=== PATIENT | female | born 1935 | race African-American/Black ===

== ENCOUNTER 2017-11-18 16:49 | Inpatient (IN) | payer MEDICARE ==
--- NOTE | 2017-11-18 18:30 | RAD ---
RIGHT HIP TWO VIEWS: 11/18/17 HISTORY: Trauma. Fall. Pain. FINDINGS: There is a nondisplaced subcapital right hip fracture. IMPRESSION: Right hip fracture. POS: [facility]
--- NOTE | 2017-11-18 18:48 | CT ---
CT CERVICAL SPINE WITHOUT CONTRAST: 11/18/17 HISTORY: Fall. Pain. Trauma. COMPARISON: None. TECHNIQUE: CT cervical spine is performed without contrast. reformatted images are submitted for interpretation. FINDINGS: No craniocervical dissociation. Lateral masses of C1 and C2 as well as the facets have appropriate ar ticulation. Odontoid process is intact. 3 mm of anterolisthesis of C4 upon C5, 2.5 mm retrolisthesis of C5 upon C6, 3 mm anterolisthesis of C 7 upon T1 and 2.9 mm anterolisthesis of T1 upon T2. Spondylolisthesis is felt to be due to degenerati ve change given facet hypertrophy. There is no significant prevertebral soft tissue swelling. Varying degrees of central canal stenosis and foraminal narrowing on the basis of degenerative change. Soft tissue neck structures, upper mediastinum, and lung apices are unremarkable. Cervical spine vertebral body height is maintained. There is no fracture. IMPRESSION: No fracture. POS: [facility]
--- NOTE | 2017-11-18 18:54 | CT ---
NONCONTRAST HEAD CT: 11/18/17 HISTORY: Pain. Trauma. Fall. COMPARISON: None. TECHNIQUE: Noncontrast head CT is performed from skull base to skull vertex. FINDINGS: No parenchymal hemorrhage. No extra-axial hematoma. No midline shift. Basilar cisterns are patent. Ag e appropriate atrophy. Cortical patino-white matter differentiation is preserved. No evidence of hydrocephalus. Adequate aeration of the sinuses and mastoid air cells. Calvarium is intact. IMPRESSION: No intracranial posttraumatic sequela. POS: [facility]
--- NOTE | 2017-11-18 18:54 | RAD ---
RIGHT ELBOW FOUR VIEWS: 11/18/17 HISTORY: Trauma. Fall. Pain. FINDINGS: Obvious fracture is not appreciated. No definite malalignment or large joint effusion. IMPRESSION: No definite fracture. Clinical correlation is essential. If there is pain or point tenderness, immobi lization and followup imaging in 7 to 10 days. POS: [facility]
[2017-11-18 19:06] LABS: #Basophils 0.2 thou/uL (0.0-0.2); #Eosinphils 0.1 thou/uL (0.0-0.7); #Lymphocytes 0.4 thou/uL (1.20-3.40); #Monocytes 0.5 thou/uL (0.11-0.59); #Neutrophils 8.1 thou/uL (1.40-6.50); %Basophils 1.9 % (0.0-1.0); %Eosinophils 0.8 % (0.0-10.0); %Lymphocytes 4.1 % (21.0-51.0); %Monocytes 5.6 % (0.0-10.0); %Neutrophils 87.6 % (42.0-75.0); Hemoglobin 13.1 g/dL (12.0-16.0); Mean Corpuscular HGB CONC 32.3 g/dL (32.0-36.0); Mean Corpuscular Hemoglobin 26.2 pg (27.0-31.0); Mean Corpuscular Volume 81.3 fL (78.0-98.0); Mean Platelet Volume 8.9 fL (7.4-10.4); Platelet Count 124 thou/uL (130-400); RBC Distribution Width 14.4 % (11.5-14.5); Red Blood Cell (RBC) Count 5.01 mill/uL (4.20-5.40); White Blood Cell (WBC) Count 9.2 thou/uL (4.8-10.8)
[2017-11-18 19:13] LABS: INR-International Normal Ratio 1.2; PTT 28.3 SEC (22.9-36.1)
[2017-11-18] MEDS ORDERED: Ondansetron ODT 4 MG TAB ONE (19:16)
[2017-11-18 19:26] LABS: ALT (SGPT) 12 U/L (8-55); AST (SGOT) 30 U/L (5-34); Albumin 4.2 g/dL (3.4-4.8); Alkaline Phosphatase 116 U/L (40-150); Anion Gap 16 mmol/L (10-20); BUN (Urea Nitrogen) 45 mg/dL (9.8-20.1); Bilirubin, Total 0.7 mg/dL (0.2-1.2); Calc. Creatinine Clearance 0 mL/min (70-130); Calcium 9.6 mg/dL (7.8-10.44); Carbon Dioxide 28 mmol/L (23-31); Chloride 99 mmol/L (98-107); Estimated GFR-MDRD 41; Globulin 4.2 g/dL (2.4-3.5); Glucose 111 mg/dL (83-110); Protein, Total 8.4 g/dL (6.0-8.3); Sodium 138 mmol/L (136-145)
[2017-11-18 19:31] LABS: Troponin I 0.019 ng/mL (< 0.028)
[2017-11-18] MEDS ORDERED: Ondansetron ODT 4 MG TAB PO PRN (20:50)
[2017-11-18] MEDS ORDERED: Ondansetron HCl/PF 4 MG/2 ML Vial IVP PRN (20:50)
[2017-11-18] MEDS ORDERED: hydrALAZINE 20 MG/ML VIAL SLOW IVP PRN (20:50)
[2017-11-18] MEDS ORDERED: Dextrose 50% Abboject 50 ML SYRINGE SLOW IVP PRN ×2 (20:50)
[2017-11-18] MEDS ORDERED: Dextrose 5% in Water 1,000 ML IV PRN (20:50)
[2017-11-18 21:01] VITALS: BMI 25.1
--- NOTE | 2017-11-18 22:15 | HP ---
DATE OF ADMISSION: 11/18/2017 REQUESTING PHYSICIAN: Dr. Dimas. ATTENDING SURGEON: Dr. Leyva. CONSULTATIONS: Orthopedic, Dr. Ty. HISTORY OF PRESENT ILLNESS: Patient is an 82-year-old -[place] woman who was reportedly walk ing with her sisters when she is turned quickly, lost her balance, and fell. The patient and her sis ters reports no loss of consciousness. Patient did not strike her head. Denies pain and no syncopal type symptoms prior to falling. She was brought to the emergency department, evaluated, examined, a nd noted to have a right femoral neck fracture, at which time we were asked to evaluate the patient f or admission and obtain Orthopedic consultation. ALLERGIES: None. CURRENT MEDICATIONS: Patient takes aspirin, Plavix, torsemide. PAST MEDICAL HISTORY: Coronary artery disease, hypertension, also congestive heart failure. PAST SURGICAL HISTORY: Cardiac stent placement and pacemaker placement. SOCIAL HISTORY: Patient denies drug, tobacco, or alcohol use. She currently lives in a [facility]. FAMILY MEDICAL HISTORY: Diabetes. REVIEW OF SYSTEMS: Ten-point review of systems negative, unless otherwise stated. PHYSICAL EXAMINATION: VITAL SIGNS: Blood pressure 156/93, heart rate 82, respirations 16, oxygen saturation is 94% on room air, temperature is 98.0. GENERAL: Patient is resting comfortably in bed. She is awake, alert, and oriented x3. [place] coma scale is 15. HEENT: Head is normocephalic, atraumatic. Eyes: Extraocular motion intact. PERRLA bilaterally. E ars are atraumatic without discharge. Nose are atraumatic without discharge. Oropharynx is clear. NECK: Nontender. Trachea is midline. No JVD. CHEST: Clear to auscultation with good inspiratory and expiratory effort. HEART: Regular rate and rhythm. ABDOMEN: Soft, flat, nontender with active bowel sounds. Pelvis is stable with tenderness to palpat ion to the right hip consistent with her fracture. EXTREMITIES: Neurovascularly intact x4. Capillary refill is less than 3 seconds. Pulses are 2+. BACK: Nontender and atraumatic. LABORATORY FINDINGS: White blood cell count 9.2, hemoglobin 13.1, hematocrit 40.7, platelets 124. S odium 138, potassium 5.0, chloride 99, CO2 of 28, BUN 45, creatinine 1.46, glucose 111. LFTs are unr emarkable. PT 15, INR 1.2, PTT 28. RADIOGRAPHIC FINDINGS: CT of the brain without contrast shows no intracranial post-traumatic sequela . CT of the C-spine without contrast shows no fracture or subluxation. Radiographs of the right elb ow show no definitive fracture. Radiographs of the right hip show a nondisplaced subcapital right hi p fracture. ASSESSMENT: 1. Status post ground level fall. 2. Right subcapital hip fracture. 3. Right elbow contusion. 4. History of coronary artery disease. 5. History of congestive heart failure. 6. Acute kidney injury. PLAN: Plan will be to admit the patient to the surgical floor due to her Plavix use. The patient wi ll not be able to have surgery until Tuesday, this has been discussed with Dr. Ty. The patient w ill have pain control, pulmonary toilet, gastritis, mechanical VTE prophylaxis. The evaluation, exam ination will be discussed with Dr. Leyva after this dictation.
[2017-11-18] MEDS ORDERED: Sodium Chloride 0.9% 1,000 ML IV SCH (23:55)
[2017-11-19] MEDS: Acetaminophen 1,000 MG in Premix Bag 1 BAG IVPB SCH ×2 (00:36→06:54)
[2017-11-19 06:09] LABS: Anion Gap 12 mmol/L (10-20); BUN (Urea Nitrogen) 43 mg/dL (9.8-20.1); Calc. Creatinine Clearance 34 mL/min (70-130); Calcium 8.8 mg/dL (7.8-10.44); Carbon Dioxide 28 mmol/L (23-31); Chloride 101 mmol/L (98-107); Estimated GFR-MDRD 42; Glucose 130 mg/dL (83-110); Potassium 4.4 mmol/L (3.5-5.1); Sodium 137 mmol/L (136-145)
[2017-11-19 06:11] LABS: #Eosinphils 0.1 thou/uL (0.0-0.7); #Lymphocytes 0.5 thou/uL (1.20-3.40); #Monocytes 0.7 thou/uL (0.11-0.59); #Neutrophils 6.4 thou/uL (1.40-6.50); %Basophils 0.1 % (0.0-1.0); %Eosinophils 1.9 % (0.0-10.0); %Lymphocytes 6.3 % (21.0-51.0); %Monocytes 9.3 % (0.0-10.0); %Neutrophils 82.5 % (42.0-75.0); Hemoglobin 11.7 g/dL (12.0-16.0); Mean Corpuscular HGB CONC 31.6 g/dL (32.0-36.0); Mean Corpuscular Hemoglobin 25.5 pg (27.0-31.0); Mean Corpuscular Volume 80.6 fL (78.0-98.0); Mean Platelet Volume 8.8 fL (7.4-10.4); Platelet Count 113 thou/uL (130-400); RBC Distribution Width 14.5 % (11.5-14.5); Red Blood Cell (RBC) Count 4.59 mill/uL (4.20-5.40); White Blood Cell (WBC) Count 7.7 thou/uL (4.8-10.8)
[2017-11-19 08:27] LABS: Magnesium 2.3 mg/dL (1.6-2.6); Phosphorus 3.9 mg/dL (2.3-4.7)
[2017-11-19] MEDS: Famotidine 20 MG TAB PO SCH (09:08)
--- NOTE | 2017-11-19 09:42 | PRG ---
DATE OF SERVICE: 11/19/2017 The patient is seen and examined. Please see [facility] for full details. The patient pre sents with right hip fracture. Plan is for ORIF of hip per Dr. Ty, Trauma team will follow.
[2017-11-19] MEDS ORDERED: Acetaminophen 500 MG TAB PO SCH (12:00)
--- NOTE | 2017-11-19 17:34 | CON ---
DATE OF CONSULTATION: 11/19/2017 DATE OF ADMISSION: 11/18/2017 HISTORY OF PRESENT ILLNESS: Ms. Soria is an 82-year-old female, who was walking with her sisters, luann boone quickly, lost her balance and fell, injuring her right hip. She was unable to ambulate afterward s, had immediate pain in the right hip and groin region. No neurologic complaints in the right lower extremity. The patient was brought to the emergency room and revealed a displaced femoral neck frac ture of the right hip. ALLERGIES: None. CURRENT MEDICATIONS: Plavix, aspirin, torsemide. PAST MEDICAL HISTORY: Coronary artery disease, hypertension, history of congestive heart failure. PAST SURGICAL HISTORY: Cardiac stent placement and pacemaker. SOCIAL HISTORY: The patient lives at [place]. She does not use tobacco or alcohol. PHYSICAL EXAMINATION: GENERAL: The patient is a very pleasant female, alert and oriented x3. VITAL SIGNS: The patient is afebrile, respiratory rate 16, heart rate 78, blood pressure 148/88. HEENT: Unremarkable for age. Cranial nerves II-XII grossly intact. NECK: Has good range of motion without pain. Thoracic and lumbar spine are nontender to palpation. LUNGS: Clear bilaterally. HEART: Regular rate and rhythm. ABDOMEN: Soft, nontender, bowel sounds positive. EXTREMITIES: Right lower extremity has some shortening and external rotation. Skin over the lateral aspect of the right hip is in good condition. She has good peripheral pulses, good sensation in the right foot. She is able to flex and extend her right ankle and toes well. X-rays of the right hip shows a displaced subcapital femoral neck fracture of the right hip. ADMISSION LABORATORY DATA: CBC: White count 9.2, hemoglobin 13.1, hematocrit 40.7. Creatinine 1.46 , BUN 45. PT 15, INR 1.2, PTT 28. RADIOGRAPHIC FINDINGS: CT of the brain shows no intracranial posttraumatic sequelae. CT of the cerv ical spine negative. X-rays of the right elbow normal. IMPRESSION: 1. Displaced subcapital fracture of the right proximal femur. 2. Right elbow contusion. 3. History of coronary artery disease. 4. History of congestive heart failure. 5. Acute renal injury. PLAN: I discussed the patient with anesthesia and with the Trauma team. We will proceed with a prox imal femoral replacement utilizing bipolar prosthesis tomorrow. Anesthesia will not be able to do an y type of block or spinal anesthesia, but they will be able to do a general anesthetic. The patient has had the aspirin and Plavix stopped. We will plan on doing surgery on Tuesday where she will under go a bipolar prosthesis.
[2017-11-19] MEDS: Carvedilol 6.25 MG TAB PO SCH (21:15)
[2017-11-19] MEDS: Torsemide 10 MG TAB PO SCH (21:16)
[2017-11-19] MEDS: traMADol HCl 50 MG TAB PO PRN (22:32)
[2017-11-20] MEDS: Sodium Chloride 0.9% 1,000 ML IV SCH ×3 (00:05→21:16)
[2017-11-20] MEDS: Carvedilol 6.25 MG TAB PO SCH ×2 (08:16→21:15)
[2017-11-20] MEDS: Famotidine 20 MG TAB PO SCH (08:19)
[2017-11-20] MEDS: Spironolactone 25 MG TAB PO SCH (08:19)
[2017-11-20] MEDS: Torsemide 10 MG TAB PO SCH ×2 (08:19→21:16)
[2017-11-20] MEDS ORDERED: Fentanyl 100 MCG/2 ML VIAL ONE (09:25)
[2017-11-20] MEDS ORDERED: CEFAZOLIN/Water 2 GM/20 ML SYRINGE ONE (09:34)
[2017-11-20] MEDS ORDERED: Ondansetron HCl/PF 4 MG/2 ML Vial IVP PRN ×2 (09:39→11:10)
[2017-11-20] MEDS ORDERED: Promethazine HCl 25 MG/ML VIAL IM PRN (09:39)
[2017-11-20] MEDS ORDERED: Promethazine HCl 25 MG/ML VIAL SLOW IVP PRN (09:39)
[2017-11-20] MEDS ORDERED: Bisacodyl 10 MG SUPP PR PRN (11:10)
[2017-11-20] MEDS ORDERED: Fleet Enema 133 ML BOT PR PRN (11:10)
[2017-11-20] MEDS ORDERED: Milk Of Magnesia 30 ML UDCUP PO PRN (11:10)
[2017-11-20] MEDS ORDERED: Ondansetron ODT 4 MG TAB PO PRN (11:10)
[2017-11-20] MEDS ORDERED: Cepastat Lozenges 1 LOZ PO PRN (11:10)
[2017-11-20] MEDS: Ketorolac Tromethamine 30 MG/ML VIAL IVP SCH ×3 (12:31→23:15)
--- NOTE | 2017-11-20 13:20 | RAD ---
RIGHT HIP 2 VIEWS: Date: 11/20/17 INDICATION: Postop hip replacement follow-up. IMPRESSION: Postop changes are noted. Right hip prosthesis in place. Components appear in adequate position and a lignment. POS: [facility]
[2017-11-20] MEDS ORDERED: Esmolol 100 MG/10 ML VIAL ONE (15:08)
[2017-11-20] MEDS ORDERED: Lidocaine 1% PF 5 ML VIAL ONE (15:08)
[2017-11-20] MEDS ORDERED: PHENYLEPHRINE-NS 100 MCG/ML 10 ML SYRINGE ONE (15:08)
[2017-11-20] MEDS ORDERED: Glycopyrrolate 0.2 MG/ML 5 ML SYRINGE ONE (15:08)
[2017-11-20] MEDS ORDERED: PROPOFOL 200 MG/20 ML VIAL ONE (15:08)
[2017-11-20] MEDS ORDERED: Ondansetron HCl/PF 4 MG/2 ML Vial ONE (15:08)
[2017-11-20] MEDS ORDERED: Dexamethasone 20 MG/5 ML VIAL ONE (15:08)
--- NOTE | 2017-11-20 16:20 | OP ---
DATE OF OPERATION: 11/20/2017 PREOPERATIVE DIAGNOSIS: Displaced subcapital femoral neck fracture of the right hip. POSTOPERATIVE DIAGNOSIS: Displaced subcapital femoral neck fracture of the right hip. PROCEDURE: Proximal femoral replacement of the right hip utilizing a bipolar prosthesis. SURGEON: Luis M Ty M.D. ASSEMBLER FOR PULLER OVER MACHINE: . ANESTHESIA: General. TECHNIQUE: The patient was given preoperative IV antibiotics, taken to the operating room, placed in supine position. Satisfactory general anesthesia was performed. The patient was placed in the left lateral decubitus position. All bony prominences were well padded. The right hip and lower extremi ty was sterilely prepped and draped in usual fashion. A longitudinal incision was made and centered over the greater trochanter approximately 5 inches in length and anterior lateral approach was made t o the hip joint. Anterior capsule was excised. The fracture was identified. The femoral neck was c ut with the oscillating saw. The femoral head was removed and measured as a size 49 in diameter. Th ere were fragments of bone posteriorly which were removed. The proximal femur was then prepared init ially using a box osteotome, then a hand Charnley reamer, the lateralizer was used and then it was se quentially hand reamed up to a size 5. The rasp was used in the proximal femur up to a size 5 and th e trial was inserted. The trial with the #5 femoral stem +1.5 neck and the 49 mm bipolar was reduced . There was excellent stability and range of motion. The trial was then removed. The acetabulum wa s completely cleansed using the high-speed rib puller with antibiotic solution, along with the rest of the hip area. The prosthesis was then inserted and again it was a [employer] [place] basic press-fit femo ral stem that measured size 5, 145 mm in length with the 28 mm head +1.5 neck and a 49 mm bipolar hea d. It was then reduced and again found to have excellent stability with range of motion. The wound again was irrigated and then closed using #2 Vicryl for the anterior fibers of the abductor muscles, #2 Vicryl for the iliotibial band, 0 Vicryl for the fat and subcutaneous tissue, and skin was closed with skin aníbal. Sterile dressing was applied. The patient was then placed in supine position, aw akened, extubated, and transferred to the recovery room in stable condition. ESTIMATED BLOOD LOSS: 100 mL. COMPLICATIONS: None.
[2017-11-20] MEDS: Senokot S 8.6-50 MG TAB PO SCH (21:09)
[2017-11-20] MEDS: Ferrous Gluconate 324 MG TAB PO SCH (21:09)
[2017-11-20] MEDS: Rosuvastatin 20 MG TAB PO SCH (21:10)
[2017-11-21] MEDS: Ketorolac Tromethamine 30 MG/ML VIAL IVP SCH (05:13)
[2017-11-21 05:26] LABS: Hemoglobin 9.3 g/dL (12.0-16.0); Mean Corpuscular HGB CONC 31.8 g/dL (32.0-36.0); Mean Corpuscular Volume 81.8 fL (78.0-98.0); Platelet Count 93 thou/uL (130-400); RBC Distribution Width 14.2 % (11.5-14.5); Red Blood Cell (RBC) Count 3.56 mill/uL (4.20-5.40); White Blood Cell (WBC) Count 8.3 thou/uL (4.8-10.8)
[2017-11-21 05:34] LABS: Anion Gap 10 mmol/L (10-20); BUN (Urea Nitrogen) 45 mg/dL (9.8-20.1); Calc. Creatinine Clearance 32 mL/min (70-130); Calcium 7.9 mg/dL (7.8-10.44); Carbon Dioxide 27 mmol/L (23-31); Chloride 101 mmol/L (98-107); Estimated GFR-MDRD 38; Glucose 130 mg/dL (83-110); Potassium 4.6 mmol/L (3.5-5.1); Sodium 133 mmol/L (136-145)
[2017-11-21] MEDS: Sodium Chloride 0.9% 1,000 ML IV SCH ×2 (06:49→08:08)
[2017-11-21] MEDS: Multivitamin W/ Minerals 1 TAB PO SCH (08:09)
[2017-11-21] MEDS: Senokot S 8.6-50 MG TAB PO SCH ×2 (08:09→21:31)
[2017-11-21] MEDS: Famotidine 20 MG TAB PO SCH (08:09)
[2017-11-21] MEDS: Ferrous Gluconate 324 MG TAB PO SCH ×2 (08:09→21:31)
[2017-11-21] MEDS: Clopidogrel Bisulfate 75 MG TAB PO SCH (08:10)
[2017-11-21] MEDS: Torsemide 10 MG TAB PO SCH (12:45)
[2017-11-21] MEDS: Spironolactone 25 MG TAB PO SCH (12:45)
[2017-11-21] MEDS: Carvedilol 6.25 MG TAB PO SCH ×2 (16:34→21:31)
--- NOTE | 2017-11-21 18:45 | TCOM ---
DATE OF SERVICE: 11/21/2017 Ms. Soria has gotten out of bed this morning sitting up in a chair. She has very little pain. She is doing well with her right hip. She underwent a bipolar prosthesis of the right hip yesterday. PHYSICAL EXAMINATION: VITAL SIGNS: The patient has been afebrile. Pulse 62, respiratory rate 14, blood pressure 120/60, O 2 saturation 100% on 2 liters. EXTREMITIES: The right lower extremity is neurovascularly intact. LABORATORY: Hemoglobin is 9.3, hematocrit 29.1. PLAN: The patient will continue with PT and OT to improve her balance, strength and gait ability. T he patient is looking at going to rehab after discharge.
--- NOTE | 2017-11-21 19:40 | PRG ---
DATE OF SERVICE: 11/21/2017 SUBJECTIVE: Patient is status post ground level fall, in which she sustained a right femoral neck fr acture. She has undergone open reduction internal fixation of same yesterday and this morning she boles s been out of bed to the chair at bedside. She states that she is tolerating a diet. Her pain is co ntrolled. PHYSICAL EXAMINATION: VITAL SIGNS: Temperature is 97.7, heart rate 62, blood pressure 104/58, respirations 14, oxygen satu ration 100% on 2 liters via nasal cannula. GENERAL: The patient is resting comfortably, sitting at the bedside. She is awake, alert, and orien sushma x3. [place] coma scale is 15. HEENT: Unremarkable. LUNGS: Clear to auscultation with good inspiratory and expiratory effort. HEART: Regular rate and rhythm. ABDOMEN: Soft, flat, nontender with active bowel sounds. EXTREMITIES: Neurovascularly intact x4. Postop dressing is clean, dry, and intact. LABORATORY DATA: White blood cell count 8.3, hemoglobin 9.3, hematocrit 29.1, platelets 93. Sodium 133, potassium 4.6, chloride 101, CO2 of 27, BUN 45, creatinine 1.57, glucose 130. There are no radi ographs to review this morning. ASSESSMENT: 1. Status post ground level fall. 2. Right hip fracture, status post open reduction internal fixation of same. PLAN: 1. Plan will be to continue supportive care, physical, and occupational therapy. 2. Deep venous thrombosis prophylaxis, likely tomorrow once her lab work has returned and we will st art working on placement.
[2017-11-21] MEDS ORDERED: Acetaminophen 500 MG TAB PO PRN (20:19)
[2017-11-21] MEDS: Rosuvastatin 20 MG TAB PO SCH (21:31)
[2017-11-21] MEDS: traMADol HCl 50 MG TAB PO PRN (21:36)
[2017-11-22 06:00] LABS: #Eosinphils 0.2 thou/uL (0.0-0.7); #Lymphocytes 0.6 thou/uL (1.20-3.40); #Monocytes 0.7 thou/uL (0.11-0.59); #Neutrophils 4.3 thou/uL (1.40-6.50); %Basophils 0.2 % (0.0-1.0); %Eosinophils 3.9 % (0.0-10.0); %Lymphocytes 9.6 % (21.0-51.0); %Monocytes 12.4 % (0.0-10.0); %Neutrophils 73.9 % (42.0-75.0); Hemoglobin 8.5 g/dL (12.0-16.0); Mean Corpuscular HGB CONC 31.8 g/dL (32.0-36.0); Mean Corpuscular Hemoglobin 25.8 pg (27.0-31.0); Mean Platelet Volume 9.1 fL (7.4-10.4); Platelet Count 108 thou/uL (130-400); RBC Distribution Width 14.4 % (11.5-14.5); Red Blood Cell (RBC) Count 3.29 mill/uL (4.20-5.40); White Blood Cell (WBC) Count 5.8 thou/uL (4.8-10.8)
[2017-11-22 06:13] LABS: Anion Gap 9 mmol/L (10-20); BUN (Urea Nitrogen) 40 mg/dL (9.8-20.1); Calc. Creatinine Clearance 47 mL/min (70-130); Calcium 8.2 mg/dL (7.8-10.44); Carbon Dioxide 26 mmol/L (23-31); Chloride 100 mmol/L (98-107); Estimated GFR-MDRD 60; Glucose 121 mg/dL (83-110); Phosphorus 2.7 mg/dL (2.3-4.7); Potassium 4.5 mmol/L (3.5-5.1); Sodium 130 mmol/L (136-145)
[2017-11-22] MEDS: Torsemide 10 MG TAB PO SCH (09:25)
[2017-11-22] MEDS: Carvedilol 6.25 MG TAB PO SCH ×2 (09:26→21:40)
[2017-11-22] MEDS: Multivitamin W/ Minerals 1 TAB PO SCH (09:27)
[2017-11-22] MEDS: Famotidine 20 MG TAB PO SCH (09:27)
[2017-11-22] MEDS: Docusate 100 MG CAP PO SCH (09:27)
[2017-11-22] MEDS: Spironolactone 25 MG TAB PO SCH (09:27)
[2017-11-22] MEDS: Clopidogrel Bisulfate 75 MG TAB PO SCH (09:27)
[2017-11-22] MEDS: Ferrous Gluconate 324 MG TAB PO SCH ×2 (09:27→21:41)
[2017-11-22] MEDS: Senokot S 8.6-50 MG TAB PO SCH ×2 (09:30→21:42)
[2017-11-22] MEDS: Senokot 8.6 MG TAB PO SCH (09:31)
[2017-11-22] MEDS: Rosuvastatin 20 MG TAB PO SCH (21:41)
[2017-11-22] MEDS ORDERED: Carvedilol 3.125 MG TAB PO SCH (22:15)
--- NOTE | 2017-11-23 00:37 | PRG ---
DATE OF SERVICE: 11/22/2017 Please note this is a late dictation. The patient was seen and evaluated at approximately 10:00 a.m. this morning. GUANAKITO Soria is an 82-year-old female, status post ground level fall resulting in a right f emoral neck fracture. She is postop day #2, status post open reduction and internal fixation of this injury. There were no acute overnight events. The patient reports that her pain is well controlled and she is working with physical therapy this morning. She vocalizes no complaint. OBJECTIVE: VITAL SIGNS: Temperature 98.9, pulse 70, respirations 15, O2 sat 93% on room air, blood pressure 109 /66. GENERAL: Well-developed elderly female in no acute distress, resting in bed. PULMONARY: Normal work of breathing. Symmetric rise. CARDIOVASCULAR: Regular rate and rhythm. GASTROINTESTINAL: Soft, nontender, nondistended. MUSCULOSKELETAL: Moves all extremities x4. NEUROLOGIC: No focal deficit noted. LABORATORY FINDINGS: WBC 5.8, hemoglobin 8.5, hematocrit 26.7, platelet count 108. Sodium 130, pota ssium 4.5, chloride 100, carbon dioxide 26, BUN 40, creatinine 1.05, glucose 121, phosphorus 2.7, mag nesium 2.0. ASSESSMENT: 1. Status post ground level fall. 2. Right hip fracture status post open reduction internal fixation. 3. Acute traumatic pain. 4. Acute blood loss anemia. 5. Hyponatremia. 6. History of coronary artery disease. 7. History of congestive heart failure. PLAN: Continue supportive care as ordered. Place patient on a regular diet with fluid restriction. Evaluate the patient's home medications for cause of hyponatremia. Continue PT and OT. Continue en courage incentive spirometry and pulmonary toileting. [facility]. AM labs. All questions were answered at the time of this dic tation. The patient was discussed with Dr. Bourne.
[2017-11-23 06:48] LABS: Anion Gap 10 mmol/L (10-20); BUN (Urea Nitrogen) 33 mg/dL (9.8-20.1); Calc. Creatinine Clearance 53 mL/min (70-130); Calcium 8.6 mg/dL (7.8-10.44); Carbon Dioxide 27 mmol/L (23-31); Chloride 102 mmol/L (98-107); Estimated GFR-MDRD 69; Glucose 112 mg/dL (83-110); Magnesium 2.3 mg/dL (1.6-2.6); Potassium 4.3 mmol/L (3.5-5.1); Sodium 135 mmol/L (136-145)
[2017-11-23] MEDS ORDERED: Sodium Phosphate 15 MMOL in Sodium Chloride 0.9% 250 ML 250 ML IVPB SCH (08:45)
[2017-11-23] MEDS: Carvedilol 3.125 MG TAB PO SCH ×2 (09:00→10:04)
[2017-11-23] MEDS: Torsemide 10 MG TAB PO SCH (10:02)
[2017-11-23] MEDS: Multivitamin W/ Minerals 1 TAB PO SCH (10:03)
[2017-11-23] MEDS: Docusate 100 MG CAP PO SCH (10:03)
[2017-11-23] MEDS: Clopidogrel Bisulfate 75 MG TAB PO SCH (10:03)
[2017-11-23] MEDS: Senokot S 8.6-50 MG TAB PO SCH (10:03)
[2017-11-23] MEDS: Famotidine 20 MG TAB PO SCH (10:04)
[2017-11-23] MEDS: Ferrous Gluconate 324 MG TAB PO SCH (10:05)
[2017-11-23] MEDS: Senokot 8.6 MG TAB PO SCH (10:25)
[2017-11-23 12:29] VITALS: BP 121/74; TEMP 97.8
--- NOTE | 2017-11-23 15:59 | DIS ---
DATE OF ADMISSION: 11/18/2017 DATE OF DISCHARGE: 11/23/2017 ADMISSION DIAGNOSES: 1. Status post ground-level fall. 2. Right subcapital hip fracture. 3. Right elbow contusion. 4. History of coronary artery disease. 5. History of congestive heart failure. 6. Acute kidney injury. DISCHARGE DIAGNOSES: 1. Status post ground-level fall. 2. Right subcapital hip fracture. 3. Right elbow contusion. 4. History of coronary artery disease. 5. History of congestive heart failure. 6. Acute kidney injury, improved. 7. Hyponatremia, improved. CONSULTANTS: Dr. Ty, Orthopedic Surgery. PROCEDURES: 11/20/2017, proximal femoral replacement of the right hip utilizing bipolar prosthesis w lorenzo Ty. HOSPITAL COURSE: Zahra Soria is an 82-year-old female, who presented to [facility] status post gr ound-level fall and was found to have the above injuries. She underwent operative intervention to he r injuries on 11/20/2017, after time was given for Plavix washout. The patient did well postoperativ felipe. She was working with physical therapy and pain was controlled via p.o. analgesics. She was taylor erating a general diet. Her acute kidney injury that was present on admission improved. She did hav e evidence of hyponatremia on the day prior to discharge; however, fluid restriction and resumption o f a general diet instead of a low-sodium diet corrected this problem and sodium was at 135 prior to d ischarge. DISCHARGE DISPOSITION: Inpatient rehabilitation. DISCHARGE CONDITION: Good. PHYSICAL EXAMINATION: VITAL SIGNS: Temperature 97.8, pulse 93, respirations 20, O2 saturation 97% on room air, blood press ure 121/74. GENERAL: Elderly-appearing female in no acute distress, resting in bed. HEAD: Normocephalic, atraumatic. PULMONARY: Normal work of breathing, symmetric rise. CARDIOVASCULAR: Regular rate and rhythm. GASTROINTESTINAL: Abdomen is soft, nontender, nondistended. MUSCULOSKELETAL: Moves all extremities x4. NEUROLOGIC: No focal deficit noted. DISCHARGE INSTRUCTIONS: Discharge instructions were provided to the patient and the accepting facili ty. She is weightbearing as tolerated in the affected limb with hip precautions. She should keep he r surgical site clean and dry. She should have a 1200 mL fluid-restricted diet. DISCHARGE MEDICATIONS: As documented in electronic medical record, a list of which was provided to [facility] accepting facility. The patient may resume home medications to include Plavix and aspirin. FOLLOWUP APPOINTMENTS: The patient should follow up with her primary care provider at [facility] for CAD, CHF, and other chronic medical issues. She should follow up with Dr. Ty from Orthopedi c Surgery once discharged from inpatient rehabilitation. She does not need follow up with Dr. Bourne or Trauma services formally, but may call our office with any questions. This is merely a summary of the patient's hospitalization. For more in depth information, please see her medical record in its entirety.
== END 2017-11-23 14:15 | DRG 470 ==
LOC: ERS 16:49 → SURG B 19:00
PROVIDERS: ADMIT Surgery; ATTEND Surgery
PROC: 0SRR0JA Replacement of Right Hip Joint, Femoral Surface with Synthetic Substitute, Uncemented, Open Approach (ICD-10-PCS; principal; 2017-11-20)
DX: S72.011A Unspecified intracapsular fracture of right femur, initial encounter for closed fracture (principal); N17.9 Acute kidney failure, unspecified; D62 Acute posthemorrhagic anemia; E87.1 Hypo-osmolality and hyponatremia; I25.10 Atherosclerotic heart disease of native coronary artery without angina pectoris; Z95.5 Presence of coronary angioplasty implant and graft; Z95.0 Presence of cardiac pacemaker; S50.01XA Contusion of right elbow, initial encounter; I11.0 Hypertensive heart disease with heart failure; I50.9 Heart failure, unspecified
CPT/HCPCS: 36415; 70450; 72125; 80048; 80053; 82553; 83735; 84100; 84484; 85025; 85027; 85610; 85730; 93005; 93010; 96374; G8978-GP-CL; G8979-GP-CK; G8987-GO-CJ; G8988-GO-CI; J0131; J1100; J1885; J2001; J2270; J2405; J2704; J3010; J7050; Q0162

== ENCOUNTER 2018-12-15 07:42 | Emergency (ER) | payer MEDICARE ==
--- NOTE | 2018-12-15 08:32 | CT ---
CT BRAIN PERFORMED WITHOUT CONTRAST ENHANCEMENT: Date: 12/15/18 HISTORY: Fall. Laceration to left side of head. COMPARISON: 11/18/17. FINDINGS: There is some generalized ventricular and sulcal prominence with decreased attenuation to the periven tricular white matter. There are no signs of intracerebral hemorrhage or extra-axial fluid collection s. Some mucosal change within the right mastoid air cells. The visualized sinuses are clear. IMPRESSION: No acute intracranial abnormalities. POS: [facility]
[2018-12-15 10:21] LABS: #Eosinphils 0.1 thou/uL (0.0-0.7); #Lymphocytes 0.4 thou/uL (1.20-3.40); #Monocytes 0.6 thou/uL (0.11-0.59); %Basophils 0.5 % (0.0-1.0); %Eosinophils 1.2 % (0.0-10.0); %Monocytes 9.4 % (0.0-10.0); %Neutrophils 82.9 % (42.0-75.0); Hemoglobin 11.1 g/dL (12.0-16.0); Mean Corpuscular HGB CONC 30.5 g/dL (32.0-36.0); Mean Corpuscular Hemoglobin 23.2 pg (27.0-31.0); Mean Platelet Volume 9.6 fL (7.4-10.4); Platelet Count 106 thou/uL (130-400); Platelet Morphology Comment PLT SLIGHTLY DECREASED; RBC Distribution Width 18.1 % (11.5-14.5); Red Blood Cell (RBC) Count 4.78 mill/uL (4.20-5.40); White Blood Cell (WBC) Count 6.1 thou/uL (4.8-10.8)
[2018-12-15 10:24] LABS: ALT (SGPT) 24 U/L (8-55); AST (SGOT) 21 U/L (5-34); Albumin 3.2 g/dL (3.4-4.8); Alkaline Phosphatase 140 U/L (40-150); Anion Gap 12 mmol/L (10-20); BUN (Urea Nitrogen) 34 mg/dL (9.8-20.1); Bilirubin, Total 1.7 mg/dL (0.2-1.2); Calc. Creatinine Clearance 0 mL/min (70-130); Calcium 8.9 mg/dL (7.8-10.44); Carbon Dioxide 27 mmol/L (23-31); Chloride 102 mmol/L (98-107); Estimated GFR-MDRD 44; Globulin 2.7 g/dL (2.4-3.5); Glucose 98 mg/dL (83-110); Potassium 4.3 mmol/L (3.5-5.1); Protein, Total 5.9 g/dL (6.0-8.3); Sodium 137 mmol/L (136-145)
--- NOTE | 2018-12-15 11:25 | RAD ---
PORTABLE CHEST: HISTORY: Shortness of breath, CHF. FINDINGS: Cardiomegaly. Mild vascular engorgement. No focal infiltrate. There may be small effusions bluntin g the CP angles. AICD leads are noted. Dense aortic calcification. IMPRESSION: Cardiomegaly with mild vascular engorgement. Evidence of small bilateral effusions. POS: [facility]
[2018-12-15] MEDS ORDERED: Furosemide 40 MG/4 ML VIAL ONE (12:16)
[2018-12-15 12:19] LABS: Bacteria/HPF None Seen HPF (None Seen); Bilirubin Negative (Negative); Blood, Urine Negative (Negative); Clarity Clear (Clear); Glucose, Urine (Dipstick) Normal (Negative); Leukocyte Negative Leu/uL (Negative); Nitrite Negative (Negative); Protein, Urine (Dipstick) 50 mg/dL (Neg-Trace); RBC/HPF 0-3 HPF (0-3); Squamous Epithelial 0-3 HPF (0-3); Urobilinogen 3 mg/dL (Less than 2); WBC/HPF 0-3 HPF (0-3)
== END 2018-12-15 19:46 ==
LOC: ERS 07:42
DX: S00.83XA Contusion of other part of head, initial encounter (principal); I50.9 Heart failure, unspecified; Z79.82 Long term (current) use of aspirin; W18.30XA Fall on same level, unspecified, initial encounter
CPT/HCPCS: 36415; 70450; 71045; 80053; 81003; 81015; 83880; 84484; 85025; 93005; 96374; J1940